=== PATIENT | female | born 1970 | race Caucasian/White ===

== ENCOUNTER → 2021-02-18 | Outpatient (CLI) | payer OTHER ==
--- NOTE | 2021-02-18 16:33 | FL ---
SINGLE CONTRAST ESOPHAGRAM: CLINICAL HISTORY: 51-year-old female R1 3.10, dysphagia. History of lap band 15 years ago. Fluid rem octavia 3 years ago. Recent development of bloating after eating. TECHNIQUE: Single contrast exam performed with thin barium. Total fluoroscopy time: 1 minute 55 seconds. Total images: 22. FINDINGS: The patient swallowed oral contrast without difficulty or delay. There are mild tertiary peristaltic contractions. The distal esophagus is mildly patulous. Suggestion of a tiny hiatal hernia. Otherwise, no abnormal distention of the gastric pouch. Adequate restriction across the lap band. Initial b2b account executive image shows satisfactory positioning of the lap band. With an oral contrast challenge, episodes of g astroesophageal and intraesophageal reflux are encountered. IMPRESSION: 1. No evidence for lap band prolapse. 2. There appears to be adequate restriction across the lap band. 3. Suggestion of a tiny hiatal hernia. Intermittent episodes of gastroesophageal/intraesophageal refl ux are encountered, especially with an oral contrast challenge.
== END | disposition home or self-care (01) ==
LOC: RADFLMAIN 15:46
PROVIDERS: ATTEND Surgery
DX: K21.9 Gastro-esophageal reflux disease without esophagitis (principal); Z98.84 Bariatric surgery status
CPT/HCPCS: 74220

== ENCOUNTER → 2021-02-18 | Outpatient (CLI) | payer OTHER ==
--- NOTE | 2021-02-18 16:52 | P.BASOAP ---
Subjective Progress Note Date: 02/18/21 Principal diagnosis: Morbid obesity Patient presents to the clinic today requesting a lap band adjustment. Patient recently gained about 20-30 pounds after thyroid surgery for thyroid cancer. Patient says she is able to eat more now than she was before. She currently has 2.2 mL of fluid in her band. Patient was still worried that she had damage to her lap band from previous attempts at [facility] for a fill. Objective - Vital Signs Vital signs: Vital Signs Temp 98.4 F 02/18/21 15:47 Pulse 103 H 02/18/21 15:47 Resp BP 136/84 02/18/21 15:47 Pulse Ox Intake & Output 02/17/21 02/18/21 02/18/21 18:59 06:59 18:59 Weight 86.636 kg - Exam Abdomen: Soft, nontender, nondistended Assessment/Plan (1) Morbid obesity Narrative/Plan: Will proceed with lap band fill at this time. The patient's lap band port was palpated. The site was aseptically prepped. The Viveros needle was advanced into the port. A total of 0.2 ml of fluid was added for a total of 2.4 mL. Pressure was held and a sterile dressing was applied. Plan: Date: 02/18/21 Initial Weight: Initial BMI: Current Weight: 86.636 kg Current BMI: 31.8 Type of Surgery: Total Volume in Band: Previous Volume: Volume Removed: Volume Added: Band Size:
== END ==
CPT/HCPCS: 99213

== ENCOUNTER → 2022-05-19 | Outpatient (CLI) | payer OTHER ==
--- NOTE | 2022-05-20 07:08 | CONS ---
CONSULTATION CHIEF COMPLAINT: GERD. INTERVAL HISTORY: The patient returns to the clinic for evaluation. She apparently was in [facility] [place] with chest pain recently. She had a recent stress test and those results are pending. They have plans to proceed with EGD in [place]. She was told she had a small hiatal hernia and esophagitis. The patient complains of bad reflux. She says these all started after taking a . The patient here to have her band emptied. PHYSICAL EXAMINATION: ABDOMEN: Soft, nontender, nondistended. PLAN: Options reviewed with the patient. We will empty the band at this time. The patient will follow up after her upper endoscopy. We have asked for the patient's records to be sent to me. The patient's band was accessed using an aseptic technique. 1.7 mL was removed without difficulty. MMODL / IJN: [id number] /
[2022-05-20 13:23] VITALS: BP 135/94; PULSE 112; TEMP 98.2; BMI 30.6
== END ==
LOC: BARWHC3 20:40
PROVIDERS: ATTEND Surgery
DX: Z46.51 Encounter for fitting and adjustment of gastric lap band (principal); K21.9 Gastro-esophageal reflux disease without esophagitis; Z88.0 Allergy status to penicillin; Z88.2 Allergy status to sulfonamides; Z88.5 Allergy status to narcotic agent
CPT/HCPCS: 99202

== ENCOUNTER → 2022-10-06 | Outpatient (CLI) | payer OTHER ==
[2022-10-06 13:17] VITALS: BP 139/96; PULSE 108; RESP 16; TEMP 98.3; BMI 34.5
--- NOTE | 2022-10-06 13:50 | P.BASOAP ---
Subjective Progress Note Date: 10/06/22 Principal diagnosis: Morbid obesity Patient returns for reevaluation. Last seen in May. She had her band emptied at that time because of an EGD that was being performed in [place]. 1.7 mL was removed. They increased her PPI to twice a day. Between emptying the band and the increased antiacids her chest pain and GERD symptoms improved. She has gained 22 pounds since last visit. She would like a big fill at this time. Objective - Vital Signs Vital signs: Vital Signs Temp 98.3 F 10/06/22 13:11 Pulse 108 H 10/06/22 13:11 Resp 16 10/06/22 13:11 BP 139/96 10/06/22 13:11 Pulse Ox FiO2 Intake & Output 10/05/22 10/06/22 10/06/22 18:59 06:59 18:59 Weight 88.451 kg - Exam Abdomen: Soft, nontender, nondistended Assessment/Plan (1) Morbid obesity Narrative/Plan: 52-year-old female with morbid obesity. Requesting a big LAP-BAND fill. Options reviewed. We'll add 1 mL at this time. Would like to try to avoid going as high as 1.7 mL with further fills. The patient's lap band port was palpated. The site was aseptically prepped. The Viveros needle was advanced into the port. A total of 1 ml of fluid was added for a total of 1 mL. Pressure was held and a sterile dressing was applied. Plan: Date: 10/06/22 Initial Weight: 102.058 kg Initial BMI: 39.8 Current Weight: 88.451 kg Current BMI: 34.5 Type of Surgery: Adjustable Gastric Banding Total Volume in Band: 0 Previous Volume: Volume Removed: Volume Added: Band Size:
== END ==
LOC: BARWHC3 12:59
PROVIDERS: ATTEND Surgery
DX: E66.01 Morbid (severe) obesity due to excess calories (principal); Z68.34 Body mass index [BMI] 34.0-34.9, adult; Z88.5 Allergy status to narcotic agent; Z88.2 Allergy status to sulfonamides; Z88.0 Allergy status to penicillin; Z46.51 Encounter for fitting and adjustment of gastric lap band
CPT/HCPCS: 99212